=== PATIENT | female | born 1935 | race Caucasian/White ===

== ENCOUNTER 2016-07-12 12:29 | Day surgery (SDC) | payer MEDICARE ==
[~2016-07-12 12:29] MED LIST: B12 INJ.,1000 MCG/M IM; BYSTOLIC10 MG PO; CHOLESTEROL MED PO; CRESTOR5 MG PO; DIOVAN80 MG OR; HYDROCHLOROTHIA25 M1 PO; HYDROCODONE 7.51 TAB PO; IBU600 MG PO; LORTAB 5/500 501 TAB PO; MAPROTILINE HCL75 MG PO; PREDNISONE 20MG20 MG PO; PREMARIN 0.60.625 MG PO; SIMVASTATIN10 MG OR; VESICARE5 MG PO; VICODIN 5/500 T1 TAB PO
--- NOTE | 2016-07-12 14:04 | Operative Note ---
Upper GI Endoscopy Procedure date: 07/12/16 Date of : 35 Procedure:Upper GI Endoscopy Esophagogastroduodenoscopy with TTS balloon dilation Indications: Mrs. Olivas is an 81-year-old female who is here with recurrent dysphagia. The patient did have a prior endoscopy with dilation with me in 2012. The patient does have some pyrosis when she lies on her RIGHT side. She has some postprandial nausea as specimen the evenings. She has had some fullness, early satiety and epigastric abdominal discomfort. She is not on PPI therapy. She has normal bowel movements without constipation. Performing Provider: Lianne Em MD Referring Provider: Trenton Cordon M.D. Sedation: Fentanyl 100 mg IV/Versed 4 mg IV Procedure: Prior to the procedure, a history and physical exam was performed, and patients medications and allergies were reviewed. The risks and benefits of the procedure and the sedation options and risks were discussed with the patient. All questions were answered and informed consent was obtained. The patient was brought to the procedure room. Patient identification and proposed procedure were verified by the physician and the nurse. The patient was placed in a left lateral decubitus position and the scope was passed under direct vision. Throughout the procedure, the patient's blood pressure, pulse, and oxygen saturations were monitored continuously. The endoscope was introduced through the mouth, and advanced to the second part of duodenum. The upper GI endoscopy was accomplished without difficulty. The patient tolerated the procedure well. Findings: The scope was passed directly into the upper esophagus and advanced to the third portion of the duodenum. The post bulbar duodenum and duodenal bulb were normal with normal mucosa and conniventes. The scope was withdrawn through a normal duodenal bulb and pylorus into the stomach. There was some mild linear erythema of the antrum with some bile reflux. The remainder of the body and fundus of the stomach were normal. Upon retroflexion there was a moderate to large hiatal hernia. The diaphragmatic hiatus was at 39 cm and the top of the gastric folds was at 34 cm from the incisors. This was a 5 cm hiatal hernia. The scope was then withdrawn into the esophagus. There was a distal ring like stricture with evidence of grade C reflux esophagitis with peptic stricture. The distal esophagus was dilated to 60 Kisw[place]ili/20 mm with a TTS hydrostatic balloon. There was mild presbyesophagus/esophageal dysmotility. Immediate complications: None EBL (ml): 0 Impression: 1. Peptic stricture with grade C LA classification reflux esophagitis status post dilation to 20 mm 2. Moderate-sized 5 cm hiatal hernia 3. Mild linear reactive gastritis 4. Mild presbyesophagus Recommendations: I will place the patient on omeprazole 40 mg by mouth daily and consider low- dose promotility therapy. at [id number]
[2016-07-12 14:49] VITALS: BP 127/78
== END 2016-07-12 14:36 | disposition home or self-care (01) ==
LOC: SDC 12:29
PROVIDERS: Internal Medicine Gastroenterology
PROC: 0D758ZZ Dilation of Esophagus, Via Natural or Artificial Opening Endoscopic (ICD-10-PCS; 2016-07-12)
PROC: 0D748ZZ Dilation of Esophagogastric Junction, Via Natural or Artificial Opening Endoscopic (ICD-10-PCS; principal; 2016-07-12 13:30)
DX: R13.10 Dysphagia, unspecified (principal); K21.0 Gastro-esophageal reflux disease with esophagitis; K44.9 Diaphragmatic hernia without obstruction or gangrene; K22.8 Other specified diseases of esophagus; K29.70 Gastritis, unspecified, without bleeding; K22.4 Dyskinesia of esophagus
CPT/HCPCS: C1726

== ENCOUNTER 2016-12-01 09:36 | Day surgery (SDC) | payer MEDICARE ==
[~2016-12-01] VITALS: Ht 160 cm; Wt 89.4 kg
[~2016-12-01 09:36] MED LIST changes: +AMLODIPINE10 MG PO; +CARVEDILOL 25MG25 MG PO; +LIPITOR40 MG PO
--- NOTE | 2016-12-01 13:27 | Operative Note ---
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 She has failed all previous conservative therapy including physical therapy, injections and previous surgery. She cannot tolerate oral narcotics because of severe side effects including nausea. She underwent intrathecal pump trial with good relief of her pain symptoms. She was pain free for almost 3 days with intrathecal ziconotide pump trial. She presents for permanent placement of intrathecal ziconotide pain pump today. I've explained the risks and benefits and answer all questions. Findings: Not applicable Procedure Description: Informed consent was obtained and the risk and benefits of the procedure was explained to the patient. The patient received vancomycin preoperatively. The patient was taken to the Operating Room. Patient was placed prone on the procedure table. She was prepped and draped in sterile fashion. C-arm fluoroscopy was used to view the lumbar spine. The skin and subcutaneous tissues tissues were anesthetized using lidocaine. I made the incision adjacent to the L4-L5 and L5-S1 interspace. I dissected down to lumbar paraspinous fascia. I inserted a 14-gauge spinal needle and advanced into the L5-S1 interspace until clear CSF was obtained. After this intrathecal catheter was inserted very easily to the T12 vertebral body. The stylet of the catheter and the needle was withdrawn. The catheter was secured to the lumbar paraspinous fascia with an anchoring device and 2-0 Prolene. I will rinse the pump with 6 mL's of intrathecal ziconotide divided into 3 2 mL washes. I prepared the pump with 14 mL's of intrathecal ziconotide 25 g per mL. While Dr. Pace prepared the pump pocket. I tunneled the catheter from the back to the pump pocket and attached the catheter to the pump. The pump was placed in the pump pocket and we were able to withdraw clear CSF through the side port. Both incisions were then closed with 2 over followed by 4-0 nylon. Patient was placed in the abdominal binder taken to recovery in stable condition. The pump was interrogated and started at 1.2 g per day of intrathecal ziconotide. EBL (ml): 5 Anesthesia: LMAC Implants: Permanent intrathecal catheter and pain pump reservoir Complications: None Disposition Disposition: Plan and disposition: We will discharge the patient home later today. If she has any problems or side effects she is to call us in the pain clinic. We will follow-up with her in 2 weeks. At that time we will refill her with 20 mL's of intrathecal ziconotide 25 g per mL. We will continue her at 1.2 g per day. We will follow-up with her 2 weeks after this follow-up appointment to make adjustments. at [id number]
--- NOTE | 2016-12-01 13:29 | Operative Note ---
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 The paraspinal incision was made with Dr. Meehan which was placed in intrathecal catheter into the intrathecal space to the area desired by Dr. Meehan.. Local anesthesia was obtained was a high percent Marcaine with epinephrine as well as IV sedation B anesthesia. A LEFT flank incision was then made under which made a pocket for placement of the reservoir. Catheter was passed from the paraspinal incision of the pocket incision wasn't tunneling device. Catheter fixed to just place in the pocket. CSF was aspirated with generator patency of the system. Subcutaneous tissues. Sutures of 2-0 Vicryl. Skin was closed from stitch of 4-0 nylon. The pockets were irrigated with bacitracin solution prior to placement of the implant. Antibiotic ointment sterile dressing and a binder applied. The patient should well to come solution. Upon recovery the patient was discharged home with follow -up in 2 weeks for suture. Wound care instructions given the patient prior to discharge. The patient and our procedure well. EBL (ml): 5 Anesthesia: LMAC Complications: None Disposition Disposition: Patient will be discharged home with follow-up in the office in 2 weeks for reassessment. Wound care instructions the patient prior to discharge. We will become very reddrainage or any other concerns. The patient told procedure well at 1402
--- NOTE | 2016-12-01 14:53 | RADIOLOGY REPORT PS360 ---
FLUOROSCOPY CHARGE(<1 HR) CLINICAL INDICATION: INTRATHECAL PAIN PUMP PLACEMENT ORDERING PHYSICIAN: Gregory Meehan MD PATIENT AGE: 81 years Fluoroscopy time: 23 seconds COMPARISON: None FINDINGS: Single image submitted with the C-arm shows an intrathecal catheter with the tip just to the right of midline at the T12 area. IMPRESSION: Fluoroscopy utilized for intrathecal catheter placement
[2016-12-01 15:50] VITALS: BP 134/59
== END 2016-12-01 14:50 | disposition home or self-care (01) ==
LOC: SDC 09:36
PROVIDERS: Anesthesiology
PROC: 0JH70VZ Insertion of Infusion Pump into Back Subcutaneous Tissue and Fascia, Open Approach (ICD-10-PCS; 2016-12-01)
PROC: 00HU03Z Insertion of Infusion Device into Spinal Canal, Open Approach (ICD-10-PCS; principal; 2016-12-01 11:15)
DX: M51.16 Intervertebral disc disorders with radiculopathy, lumbar region (principal); M96.1 Postlaminectomy syndrome, not elsewhere classified; E11.8 Type 2 diabetes mellitus with unspecified complications
CPT/HCPCS: C1755; C1772; J3370

== ENCOUNTER 2016-12-14 13:39 | Day surgery (SDC) | payer MEDICARE ==
[~2016-12-14] VITALS: Ht 160 cm; Wt 86.2 kg
[2016-12-14 13:54] VITALS: BP 120/55
[2016-12-14 14:13] VITALS: BP 120/55
[2016-12-14 14:17] VITALS: BP 144/67
--- NOTE | 2016-12-14 14:36 | Procedure Note ---
Procedure detail Date of procedure: 12/14/16 Anesthesiologist: Serge Nieto Complications: None Pre-procedure diagnosis: Degenerative disc disease lumbar spine with. Lumbar radiculopathy symptoms. Lumbar postlaminectomy syndrome. Post-procedure diagnosis: Same. Indications for procedure: Very pleasant 81-year-old white female who recently had an intrathecal pain pump implantation. She reports her procedure clinic today for intrathecal pain pump refill. Patient reports she's doing very well in terms of her chronic pain. She reports lumbar back pain much better. Bilateral hip and leg radiculopathy symptoms continue to improve. She rates the pain 3/10 and states that it all incisional. She states she is having 0 back pain Procedure detail: Details of the procedure spine to the patient with the patient taken to the procedure room and placed in a prone position on the fluoroscopy table. The area of the pain pump was cleansed using chlorhexidine as a cleansing solution. Using fluoroscopy guidance the pain pump was accessed with these using a 22-gauge needle from the refill kit. 13.2 mL of solution was withdrawn and discarded appropriate. The pump was then filled with 20 mL of Preault 25 g/milliliter. The pump was then interrogated. The rate was continued at 1.2 mcg/day. PTC was added to the pump. Plan and disposition: Patient was programmed with Prialt 1.2 g daily and PTC of 0.12 g every 6 hours with a lockout of 4. Due to programming restrictions we had to change the unit to mg instead of micrograms. Programming remains the same however. We contacted both the [employer] rep and customer support to verify that she had been program correctly. We will follow up with this patient in 3 weeks and adjust her if necessary. at [id number]
[2016-12-14 15:07] VITALS: BP 120/55
== END 2016-12-14 15:08 ==
LOC: PM 13:39
DX: M51.16 Intervertebral disc disorders with radiculopathy, lumbar region (principal); M96.1 Postlaminectomy syndrome, not elsewhere classified